=== PATIENT | male | born 1990 | race American Indian/Alaskan Native ===

== ENCOUNTER 2019-06-02 10:39 | Emergency (ER) | payer SELFPAY ==
[2019-06-02 10:42] VITALS: BP 137/80
--- NOTE | 2019-06-02 12:33 | Emergency Department Report ---
ED Back Pain/Injury HPI - General Chief Complaint: Back Pain/Injury Stated Complaint: BACK PAIN Time Seen by Provider: 06/02/19 12:16 Source: patient Limitations: No Limitations - History of Present Illness Initial Comments: Patient is a 28-year-old male presents emergency room with complaints of lower back pain that began 3 days ago. pt states that his back pain began after w orking and lifting heavy objects at work. He denies any fall or injury. Denies any numbness, weakness, bowel or bladder incontinence, fever, vomiting, abd pain, urinary sx, saddle numbness, any other symptoms. He states he has had this discomfort in his back before after working. He denies any past medical history or allergies to medications. - Related Data Previous Rx's Medication Instructions Recorded Last Taken Type Cyclobenzaprine [Flexeril] 10 mg PO QHS PRN #12 tablet 06/02/19 Unknown Rx Naproxen [EC-Naproxen] 500 mg PO BID PRN #20 tablet. 06/02/19 Unknown Rx Allergies Allergy/AdvReac Type Severity Reaction Status Date / Time No Known Allergies Allergy Verified 06/02/19 10:40 ED Review of Systems ROS: Stated complaint: BACK PAIN Other details as noted in HPI Comment: All other systems reviewed and negative ED Past Medical Hx - Past Medical History Previous Medical History?: No - Surgical History Past Surgical History?: No - Social History Smoking Status: Never Smoker Substance Use Type: Alcohol, Marijuana - Medications Home Medications: Home Medications Medication Instructions Recorded Confirmed Last Taken Type Cyclobenzaprine [Flexeril] 10 mg PO QHS PRN #12 tablet 06/02/19 Unknown Rx Naproxen [EC-Naproxen] 500 mg PO BID PRN #20 tablet. 06/02/19 Unknown Rx ED Physical Exam - General Limitations: No Limitations General appearance: alert, in no apparent distress - Head Head exam: Present: atraumatic, normocephalic - Eye Eye exam: Present: normal appearance - ENT ENT exam: Present: mucous membranes moist - Neck Neck exam: Present: normal inspection, full ROM. Absent: tenderness - Respiratory Respiratory exam: Present: normal lung sounds bilaterally. Absent: respiratory distress, wheezes, rales, rhonchi, stridor, chest wall tenderness, accessory muscle use, decreased breath sounds, prolonged expiratory - Cardiovascular Cardiovascular Exam: Present: regular rate, normal rhythm, normal heart sounds. Absent: systolic murmur, diastolic murmur, rubs, gallop - Back Exam Back exam: Present: normal inspection, full ROM, paraspinal tenderness (bilateral lumbar paraspinal muscular TTP, no midline C-spine, T-spine, or L- spine tenderness, no step offs, no deformities). Absent: vertebral tenderness - Neurological Exam Neurological exam: Present: alert, oriented X3, normal gait, other (equal heel painter strength, 5/5 strength in the BUE/BLE, sensation intact throughout, no focal neuro deficit). Absent: motor sensory deficit - Psychiatric Psychiatric exam: Present: normal affect, normal mood - Skin Skin exam: Present: warm, dry, intact ED Course Vital Signs 06/02/19 10:41 Temperature 97.7 F Pulse Rate 66 Respiratory 18 Rate Blood Pressure 137/80 O2 Sat by Pulse 99 Oximetry ED Medical Decision Making - Medical Decision Making Patient is a 28-year-old male presents emergency room with complaints of lower back pain that began 3 days ago. pt states that his back pain began after working and lifting heavy objects at work. He denies any fall or injury. Denies any numbness, weakness, bowel or bladder incontinence, fever, vomiting, abd pain, urinary sx, saddle numbness, any other symptoms. He states he has had this discomfort in his back before after working. He denies any past medical history or allergies to medications. VSS. on exam: bilateral lumbar paraspinal muscular TTP, no midline C-spine, T-spine, or L-spine tenderness, no step offs, no deformities, equal heel painter strength, 5/5 strength in the BUE/BLE, sensation intact throughout, no focal neuro deficit. Symptoms and examination consistent with low back strain. pt given prescription for naproxen and Flexeril. advised patient to take medication as prescribed as needed. Do not drive or operate heavy machinery while taking muscle relaxer. May use ice pack, heating pad, rest, epsom salt bath, stretching. Follow-up with orthopedic doctor if symptoms are not improving. return to the emergency room for any new or worsening symptoms. - Differential Diagnosis low back strain, sciatica, muscle spasm, arthritis, disc herniation, DDD Critical care attestation.: If time is entered above; I have spent that time in minutes in the direct care of this critically ill patient, excluding procedure time. ED Disposition Clinical Impression: Low back strain Qualifiers: Encounter type: sequela Qualified Code(s): S39.012S - Strain of muscle, fascia and tendon of lower back, sequela Disposition: TO HOME OR SELFCARE Is pt being admited?: No Does the pt Need Aspirin: No Condition: Stable Instructions: Low Back Strain (ED) Additional Instructions: take medication as prescribed as needed. Do not drive or operate heavy machinery while taking muscle relaxer. May use ice pack, heating pad, rest, epsom salt bath, stretching. Follow-up with orthopedic doctor if symptoms are not improving. return to the emergency room for any new or worsening symptoms. Prescriptions: Cyclobenzaprine [Flexeril] 10 mg PO QHS PRN #12 tablet PRN Reason: Muscle Spasm Naproxen [EC-Naproxen] 500 mg PO BID PRN #20 tablet.dr QUIJANO Reason: pain Referrals: [facility] [Provider Group] - as needed Forms: Work/School Release Form(ED) Time of Disposition: 12:34 Print Language: [place]
== END 2019-06-02 13:01 | disposition home or self-care (01) ==
LOC: ED 10:39
DX: S39.012A Strain of muscle, fascia and tendon of lower back, initial encounter (principal); F12.10 Cannabis abuse, uncomplicated; Z79.899 Other long term (current) drug therapy; X50.0XXA Overexertion from strenuous movement or load, initial encounter; Y93.89 Activity, other specified; Y92.89 Other specified places as the place of occurrence of the external cause; Y99.8 Other external cause status